=== PATIENT | male | born 1980 | race Two or more races ===

== ENCOUNTER 2016-09-29 17:55 | Emergency (ER) | payer SELFPAY ==
[~2016-09-29] VITALS: Ht 172.7 cm; Wt 81.6 kg
[2016-09-29] MEDS ORDERED: Ketorolac 60mg Inj IM ONE (18:45)
[2016-09-29 19:57] VITALS: BP 140/84
[2016-09-29] MEDS ORDERED: IBUPROFEN600 MG ORAL (20:01)
[2016-09-29] MEDS ORDERED: CYCLOBENZAPRINE10 MG ORAL (20:01)
[2016-09-29 20:25] VITALS: BP 130/79
--- NOTE | 2016-09-30 11:10 | Diagnostic Imaging Report ---
Indication: Chest Pain Comparison: None A single view chest radiograph was obtained. Findings: Cardiomediastinal appearance is within normal limits for age. Pulmonary vascularity is appropriate. The diaphragmatic contour is smooth and costophrenic angles are sharp. No pleural effusions are identified. The bones are unremarkable. Impression: No acute findings
--- NOTE | 2016-09-30 11:10 | Diagnostic Imaging Report ---
Indication: Back pain Comparison: None Findings: 3 views of the lumbar spine were obtained. Multilevel narrowing of intervertebral disks and associated endplate and Facet osteophytes are present, particularly at L3-4 and L4-5. No malalignment identified. No acute fracture definitely seen. Impression: Mild spondylosis. No acute injury appreciated.
--- NOTE | 2016-10-01 07:24 | Emergency Room Report ---
History of Present Illness General Chief Complaint: Back Injury Source: Patient Present Illness HPI Patient is a 36-year-old male who presented after having increased back pain. Patient reported having increased pain to the right side of his back. Is worse with movement. Patient denied any recent fever or dysuria. He had not been losing weight. Patient reported having sudden onset of pain during reaching. The patient had previously fallen. He denied numbness or weakness to his lower extremities. He reported having normal bowel movements and denied any urinary symptoms. Allergies: Coded Allergies: No Known Allergies (Unverified , 09/29/16) Patient History Past Medical History: see triage record Reviewed Nursing Documentation: PMH: Agreed, PSxH: Agreed Nursing Documentation-PMH Past Medical History: No Stated History Review of Systems All Other Systems: negative except mentioned in HPI Physical Exam Vital Signs Date Time Temp Pulse Resp B/P Pulse Ox O2 Delivery O2 Flow Rate FiO2 09/29/16 18:16 98.1 101 21 131/77 98 Room Air General Appearance: well appearing, no apparent distress, alert, GCS 15 Head: normocephalic, atraumatic ENT: hearing grossly normal, normal voice Neck: full range of motion, supple Respiratory: no respiratory distress, speaking full sentences Gastrointestinal: normal bowel sounds, non tender, soft Musculoskeletal: normal inspection, no calf tenderness, decreased range of mation Neurologic: normal inspection, alert, oriented x3, responsive, 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 X-ray imaging of the lumbar spine was ordered due to the patient's recent trauma. X-ray imaging of 3 views interpreted by me showed degenerative changes without evident fracture there is normal bony alignment noted. The patient is advised to follow up with primary care doctor in 1-2 days. Patient is advised to return if any worsening condition or if any changes in status that are concerning. Last Vital Signs Date Time Temp Pulse Resp B/P Pulse Ox O2 Delivery O2 Flow Rate FiO2 09/29/16 20:25 98.2 90 16 130/79 100 Room Air Status: improved Disposition: HOME, SELF-CARE Condition: Stable Scripts Ibuprofen* (MOTRIN*) 600 Mg Tablet 600 MG ORAL Q8H Y for For Pain, #30 TAB 0 Refills Prov: Daniel Carney 09/29/16 Cyclobenzaprine Hcl* (FLEXERIL*) 10 Mg Tablet 10 MG ORAL TID Y for Muscle Spasm, #20 TAB Prov: RommelDaniel 09/29/16 Referrals: NOT CHOSEN IPA/MD,REFERRING (PCP) Departure Forms: Return to Work Return to Work in (Days): 3 Other Restrictions: no lifting greater than 20 lbs Patient Instructions: Back Pain, Adult Daniel Carney Oct 01, 2016 07:24
== END 2016-09-29 21:00 | disposition home or self-care (01) ==
LOC: EMR 20:45
DX: M54.9 Dorsalgia, unspecified (principal)
CPT/HCPCS: 71010; 72020; 96372; 99284